=== PATIENT | female | born 1935 | race Caucasian/White ===

== ENCOUNTER 2017-01-04 14:30 | Emergency (ER) | payer MEDICARE, MEDICAID ==
[~2017-01-04] VITALS: Ht 162.6 cm; Wt 86.2 kg
[~2017-01-04 14:30] MED LIST: ALEN70TA2 PO; AML5T PO; BUSP5TAB51 PO; CAR3125T PO; CITA10TA59 PO; DULO30CA2 PO; FAMO-12 PO; FURO40TA PO; FURO40TA4 PO; GABA-494 PO; LEVO125T66 PO; METF-370 PO; NORT25CA GT; POTA-167 PO; PRE5T PO; PREDPOW63 PO; RIV20T PO; ZOLP10TA PO
[2017-01-04] MEDS ORDERED: ONDANSETRON HCL 4 MG/2 ML VIAL IV ONE (16:00)
[2017-01-04] MEDS ORDERED: MORPHINE SULFATE 4 MG/ML SYRG IV ONE (16:00)
[2017-01-04 19:06] VITALS: BP 111/60
[2017-01-08] MEDS ORDERED: POTA-167 PO (00:09)
[2017-01-08] MEDS ORDERED: METF-489 PO (00:09)
[2017-01-08] MEDS ORDERED: ATOR40TA52 PO (00:09)
[2017-01-08] MEDS ORDERED: GABA-494 PO (00:09)
[2017-01-08] MEDS ORDERED: PRED1PAK7 PO (00:09)
[2017-01-08] MEDS ORDERED: DOCU250C3 PO (00:09)
[2017-01-08] MEDS ORDERED: GABA-497 PO (00:09)
[2017-01-08] MEDS ORDERED: CLOP75TA41 PO (00:09)
[2017-01-08] MEDS ORDERED: FAMO-12 PO (00:09)
[2017-01-08] MEDS ORDERED: LEVO75TA6 PO (00:09)
[2017-01-08] MEDS ORDERED: AMLO5TAB2 PO (00:09)
[2017-01-08] MEDS ORDERED: NORT25CA PO (00:09)
[2017-01-08] MEDS ORDERED: CARV3.1240 PO (00:09)
[2017-01-08] MEDS ORDERED: DULO1CAP2 PO (00:09)
[2017-01-08] MEDS ORDERED: FURO40TA4 PO (00:09)
[2017-01-08] MEDS ORDERED: HYDR-531 PO (00:09)
== END 2017-01-04 19:58 | disposition short-term general hospital (02) ==
LOC: EDBD 14:30 → EDUNIT# 14:30 → ER 14:34
DX: S42.401A Unspecified fracture of lower end of right humerus, initial encounter for closed fracture (principal); I25.10 Atherosclerotic heart disease of native coronary artery without angina pectoris; E11.9 Type 2 diabetes mellitus without complications; E78.5 Hyperlipidemia, unspecified; I10 Essential (primary) hypertension; I25.2 Old myocardial infarction; E07.9 Disorder of thyroid, unspecified; Z98.61 Coronary angioplasty status; Z79.899 Other long term (current) drug therapy; W18.39XA Other fall on same level, initial encounter; Y93.89 Activity, other specified; Y92.89 Other specified places as the place of occurrence of the external cause; Y99.8 Other external cause status
CPT/HCPCS: 29105; 73070; 73090; 82962; 96374; 96375; 99285; J2270; J2405; 29125

== ENCOUNTER 2018-04-08 11:56 | Emergency (ER) | payer MEDICARE, MEDICAID ==
[~2018-04-08] VITALS: Ht 170.2 cm; Wt 68.0 kg
[~2018-04-08 11:56] MED LIST changes: -AML5T PO; +AMLO5TAB13 PO; +ATOR40TA52 PO; -CAR3125T PO; +CARV3.1240 PO; +CLOP75TA41 PO; +DOCU250C3 PO; +DULO1CAP2 PO; -DULO30CA2 PO; -FURO40TA PO; -GABA-494 PO; +GABA100C9 PO; +GABA300C10 PO; +HYDR-531 PO; -LEVO125T66 PO; +LEVO75TA6 PO; -METF-370 PO; +METF-489 PO; -NORT25CA GT; +NORT25CA PO; -PRE5T PO; +PRED1PAK7 PO; -PREDPOW63 PO
[2018-04-08 13:37] LABS: Basophils # (auto) 0.1 uL; Basophils % (auto) 0.6 % (0.0-2.0); Eosinophils # (auto) 0.2 uL; Hematocrit 40.8 % (36.0-46.0); Lymphocytes % (auto) 18.9 % (10.0-50.0); Nucleated Red Blood Cells % 0.1 %
[2018-04-08 13:39] LABS: Eosinophils % (auto) 2.2 % (0.0-7.0); Hemoglobin 13.4 g/dL (12.2-16.2); Lymphocytes # (auto) 1.8 uL; Mean Corpuscular Hemoglobin 26.5 pg (28.0-32.0); Mean Corpuscular Hgb Conc. 32.7 g/dL (32.0-36.0); Monocytes % (auto) 10.3 % (0.0-12.0); Neutrophils # (auto) 6.6 uL; Platelet Count (auto) 259 10^3/uL (140-450); Red Blood Cells 5.04 10^6/uL (4.0-5.20); White Blood Cell 9.8 10^3/uL (4.4-10.8)
[2018-04-08 13:41] LABS: Red Cell Distribution Width 21.1 % (11.8-14.3)
[2018-04-08 13:53] LABS: Albumin 3.9 g/dL (3.4-5.0); Anion Gap 9 (5-15); Calcium 8.7 mg/dL (8.5-10.1); Carbon Dioxide 24 mmol/L (21-32); Chloride 108 mmol/L (98-107); Glucose 75 mg/dL (74-106); Potassium 3.5 mmol/L (3.5-5.1); Sodium 141 mmol/L (136-145)
[2018-04-08 14:05] LABS: BUN/Creatinine Ratio 14.5; Blood Urea Nitrogen 12 mg/dL (7-18); GFR African American 85 mL/min
[2018-04-08 14:06] LABS: Alanine Aminotransferase 13 U/L (13-56); Alkaline Phosphatase 117 U/L (45-117); Aspartate Aminotransferase 14 U/L (15-37); Bilirubin, Total 0.9 mg/dL (0.2-1.0); GFR Non-African American 70 mL/min; Total Protein 7.4 g/dL (6.4-8.2)
[2018-04-08 15:17] VITALS: BP 138/71
== END 2018-04-08 15:40 | disposition home or self-care (01) ==
LOC: ER 11:56 → EDBD 11:56 → ER 15:40
DX: R53.1 Weakness (principal); I25.10 Atherosclerotic heart disease of native coronary artery without angina pectoris; E07.9 Disorder of thyroid, unspecified; I25.2 Old myocardial infarction; E11.9 Type 2 diabetes mellitus without complications; E78.5 Hyperlipidemia, unspecified; I11.0 Hypertensive heart disease with heart failure; I50.9 Heart failure, unspecified; Z98.61 Coronary angioplasty status; Z79.899 Other long term (current) drug therapy; Z86.73 Personal history of transient ischemic attack (TIA), and cerebral infarction without residual deficits
CPT/HCPCS: 36415; 71045; 80053; 84484; 85025; 93005

== ENCOUNTER 2018-05-25 15:53 | Emergency (ER) | payer MEDICARE, MEDICAID ==
[~2018-05-25] VITALS: Ht 162.6 cm; Wt 83.9 kg
[2018-05-25 18:24] VITALS: BP 156/73
[2018-05-25 18:38] LABS: Basophils # (auto) 0.1 uL; Basophils % (auto) 0.8 % (0.0-2.0); Eosinophils # (auto) 0.3 uL; Eosinophils % (auto) 3.3 % (0.0-7.0); Hematocrit 36.2 % (36.0-46.0); Hemoglobin 11.9 g/dL (12.2-16.2); Lymphocytes # (auto) 1.9 uL; Mean Corpuscular Hemoglobin 28.5 pg (28.0-32.0); Mean Corpuscular Hgb Conc. 32.8 g/dL (32.0-36.0); Mean Corpuscular Volume 86.8 fL (80.0-100.0); Monocytes # (auto) 1.1 uL; Monocytes % (auto) 14.2 % (0.0-12.0); Neutrophils # (auto) 4.6 uL; Neutrophils % (auto) 57.7 % (37.0-80.0); Platelet Count (auto) 280 10^3/uL (140-450); Red Blood Cells 4.17 10^6/uL (4.0-5.20); Red Cell Distribution Width 19.5 % (11.8-14.3); White Blood Cell 7.9 10^3/uL (4.4-10.8)
[2018-05-25 18:47] LABS: INR 1.26 (0.9-1.15); Partial Thromboplastin Time 39.6 sec (23.78-33.04); Prothrombin Time 13.3 sec (9.27-12.13)
[2018-05-25 18:50] LABS: Albumin 3.7 g/dL (3.4-5.0); Blood Urea Nitrogen 21 mg/dL (7-18); Calcium 9.2 mg/dL (8.5-10.1); Carbon Dioxide 23 mmol/L (21-32); Glucose 109 mg/dL (74-106); Magnesium 2.1 mg/dL (1.6-2.6)
[2018-05-25 18:58] LABS: Alanine Aminotransferase 10 U/L (13-56); Alkaline Phosphatase 119 U/L (45-117); Aspartate Aminotransferase 13 U/L (15-37); BUN/Creatinine Ratio 16.4; Bilirubin, Total 0.7 mg/dL (0.2-1.0); GFR African American 51 mL/min; GFR Non-African American 42 mL/min; Total Protein 7.1 g/dL (6.4-8.2)
[2018-05-25 19:19] LABS: Anion Gap 10 (5-15); Chloride 109 mmol/L (98-107); Potassium 4.3 mmol/L (3.5-5.1); Sodium 142 mmol/L (136-145)
== END 2018-05-25 21:04 | disposition home or self-care (01) ==
LOC: ER 16:00
DX: S70.02XA Contusion of left hip, initial encounter (principal); N28.9 Disorder of kidney and ureter, unspecified; D68.9 Coagulation defect, unspecified; I48.91 Unspecified atrial fibrillation; I25.810 Atherosclerosis of coronary artery bypass graft(s) without angina pectoris; I11.0 Hypertensive heart disease with heart failure; I50.9 Heart failure, unspecified; E11.9 Type 2 diabetes mellitus without complications; E78.5 Hyperlipidemia, unspecified; I25.2 Old myocardial infarction; E07.9 Disorder of thyroid, unspecified; Z86.73 Personal history of transient ischemic attack (TIA), and cerebral infarction without residual deficits; Z79.899 Other long term (current) drug therapy; W01.0XXA Fall on same level from slipping, tripping and stumbling without subsequent striking against object, initial encounter; Y93.89 Activity, other specified; Y92.098 Other place in other non-institutional residence as the place of occurrence of the external cause; Y99.8 Other external cause status
CPT/HCPCS: 36415; 51702; 70450; 71045; 73502; 80053; 83735; 83880; 84484; 85025; 85610; 85730; 93005

== ENCOUNTER 2018-07-09 06:46 | Emergency (ER) | payer MEDICARE, MEDICAID ==
[~2018-07-09] VITALS: Ht 167.6 cm; Wt 68.0 kg
[2018-07-09 07:52] VITALS: BP 166/73
== END 2018-07-09 09:22 | disposition home or self-care (01) ==
LOC: EDUNIT# 06:46 → ER 06:46
DX: S62.615A Displaced fracture of proximal phalanx of left ring finger, initial encounter for closed fracture (principal); I48.91 Unspecified atrial fibrillation; I25.10 Atherosclerotic heart disease of native coronary artery without angina pectoris; I11.0 Hypertensive heart disease with heart failure; I50.9 Heart failure, unspecified; F03.90 Unspecified dementia, unspecified severity, without behavioral disturbance, psychotic disturbance, mood disturbance, and anxiety; E78.5 Hyperlipidemia, unspecified; I25.2 Old myocardial infarction; Z86.73 Personal history of transient ischemic attack (TIA), and cerebral infarction without residual deficits; W19.XXXA Unspecified fall, initial encounter; Y93.89 Activity, other specified; Y92.89 Other specified places as the place of occurrence of the external cause; Y99.8 Other external cause status
CPT/HCPCS: 29130; 70450; 71045; 72192; 73130

== ENCOUNTER 2019-03-12 12:39 | Emergency (ER) | payer MEDICARE, MEDICAID ==
[~2019-03-12] VITALS: Ht 172.7 cm; Wt 79.4 kg
[~2019-03-12 12:39] MED LIST changes: -ALEN70TA2 PO; -AMLO5TAB13 PO; -BUSP5TAB51 PO; -CARV3.1240 PO; +CIPR-217 PO; -CITA10TA59 PO; -CLOP75TA41 PO; -DOCU250C3 PO; -DULO1CAP2 PO; +DULO1CAP5 PO; -FAMO-12 PO; +FURO20TA3 PO; -FURO40TA4 PO; +LINA1CAP2 PO; +MED20T PO; -NORT25CA PO; +OXYB15TA12 PO; -POTA-167 PO; -PRED1PAK7 PO; -ZOLP10TA PO
[2019-03-12] MEDS ORDERED: SODIUM CHLORIDE 0.9% 1,000 ML IVB ONE (13:36)
[2019-03-12 13:55] LABS: Basophils # (auto) 0 uL; Basophils % (auto) 0.5 % (0.0-2.0); Eosinophils # (auto) 0.3 uL; Eosinophils % (auto) 3.6 % (0.0-7.0); Hematocrit 37.8 % (36.0-46.0); Hemoglobin 12.7 g/dL (12.2-16.2); Lymphocytes # (auto) 1.6 uL; Lymphocytes % (auto) 23.3 % (10.0-50.0); Mean Corpuscular Hemoglobin 29.7 pg (28.0-32.0); Mean Corpuscular Hgb Conc. 33.6 g/dL (32.0-36.0); Mean Corpuscular Volume 88.3 fL (80.0-100.0); Monocytes # (auto) 0.9 uL; Monocytes % (auto) 12.6 % (0.0-12.0); Neutrophils # (auto) 4.2 uL; Nucleated Red Blood Cells % 0.1 %; Platelet Count (auto) 264 10^3/uL (140-450); Red Blood Cells 4.28 10^6/uL (4.0-5.20); Red Cell Distribution Width 14.8 % (11.8-14.3)
[2019-03-12 14:14] LABS: Albumin 3.1 g/dL (3.4-5.0); Calcium 8.8 mg/dL (8.5-10.1); Potassium 4.1 mmol/L (3.5-5.1)
[2019-03-12 14:19] LABS: BUN/Creatinine Ratio 20.9; Bilirubin, Total 0.5 mg/dL (0.2-1.0); Total Protein 6.7 g/dL (6.4-8.2)
[2019-03-12 14:23] LABS: INR 1.27 (0.9-1.15); Partial Thromboplastin Time 37.6 sec (23.64-32.05)
[2019-03-12 15:35] LABS: Urine Bacteria NONE SEEN /hpf (None Seen); Urine Blood Negative /uL (Negative); Urine Specific Gravity 1.009 (1.001-1.035); Urine WBC 15 /hpf (0 - 5)
[2019-03-12 16:00] VITALS: BP 144/75
[2019-03-12] MEDS ORDERED: cefTRIAXone 1GM/50ML D5W 50 ML IV ONE (16:00)
== END 2019-03-12 18:00 | disposition home or self-care (01) ==
LOC: EDBD 12:39 → ER 12:46
DX: S51.812A Laceration without foreign body of left forearm, initial encounter (principal); N39.0 Urinary tract infection, site not specified; F03.90 Unspecified dementia, unspecified severity, without behavioral disturbance, psychotic disturbance, mood disturbance, and anxiety; J45.909 Unspecified asthma, uncomplicated; I25.10 Atherosclerotic heart disease of native coronary artery without angina pectoris; I11.0 Hypertensive heart disease with heart failure; I50.9 Heart failure, unspecified; E78.5 Hyperlipidemia, unspecified; E07.9 Disorder of thyroid, unspecified; Z79.899 Other long term (current) drug therapy; I25.2 Old myocardial infarction; Z98.61 Coronary angioplasty status; W01.190A Fall on same level from slipping, tripping and stumbling with subsequent striking against furniture, initial encounter; Y93.89 Activity, other specified; Y99.8 Other external cause status; Y92.89 Other specified places as the place of occurrence of the external cause
CPT/HCPCS: 36415; 70450; 71045; 80053; 81001; 83735; 85025; 85610; 85730; 93005; 94761; 96361; 96365; 99284; J0696; J7030

== ENCOUNTER 2019-11-07 19:45 | Inpatient (IN) | payer MEDICARE, MEDICAID ==
[~2019-11-07] VITALS: Ht 167.6 cm; Wt 59.6 kg
[~2019-11-07 19:45] MED LIST changes: -CIPR-217 PO; +CIPR500T4 PO
[2019-11-07 21:37] LABS: Basophils # (auto) 0 10 ^3/uL (0-0.2); Basophils % (auto) 0.2 % (0.0-2.0); Eosinophils # (auto) 0 10 ^3/uL (0-0.8); Eosinophils % (auto) 0.2 % (0.0-7.0); Hematocrit 39.3 % (36.0-46.0); Hemoglobin 12.8 g/dL (12.2-16.2); Lymphocytes % (auto) 5.9 % (10.0-50.0); Mean Corpuscular Hemoglobin 28.4 pg (28.0-32.0); Mean Corpuscular Hgb Conc. 32.5 g/dL (32.0-36.0); Mean Corpuscular Volume 87.3 fL (80.0-100.0); Monocytes # (auto) 1.4 10 ^3/uL (0-1.3); Monocytes % (auto) 8.5 % (0.0-12.0); Neutrophils # (auto) 14.3 10 ^3/uL (1.6-8.6); Neutrophils % (auto) 85.2 % (37.0-80.0); Nucleated Red Blood Cells % 0.1 %; Platelet Count (auto) 423 10^3/uL (140-450); Red Cell Distribution Width 16.3 % (11.8-14.3); White Blood Cell 16.8 10^3/uL (4.4-10.8)
[2019-11-07 21:50] LABS: INR 1.22 (0.9-1.15); Partial Thromboplastin Time 40.4 sec (23.64-32.05)
[2019-11-07 21:52] LABS: Albumin 2.8 g/dL (3.4-5.0); BUN/Creatinine Ratio 35.5; Magnesium 2.3 mg/dL (1.6-2.6); Potassium 4.1 mmol/L (3.5-5.1)
[2019-11-07 21:54] LABS: Total Protein 7.8 g/dL (6.4-8.2)
[2019-11-07] MEDS ORDERED: levoFLOXacin 750MG 150 ML IV ONE (23:45)
[2019-11-07] MEDS ORDERED: SODIUM CHLORIDE 0.9% 1,000 ML IV SCH (23:54)
[2019-11-08] MEDS ORDERED: NITROGLYCERIN 0.4 MG SL TAB SL PRN
[2019-11-08] MEDS ORDERED: MORPHINE SULF INJ 2 MG/ML SYRINGE 1ML IV PRN
[2019-11-08] MEDS ORDERED: ACETAMINOPHEN 500 MG TAB PO PRN
[2019-11-08] MEDS ORDERED: LORazepam 0.5 MG TAB PO ONE (01:00)
[2019-11-08] MEDS ORDERED: risperiDONE 1 MG TAB PO ONE (01:00)
[2019-11-08 01:09] LABS: Albumin 2.4 g/dL (3.4-5.0); Calcium 8.2 mg/dL (8.5-10.1); Potassium 3.5 mmol/L (3.5-5.1)
[2019-11-08 01:10] LABS: BUN/Creatinine Ratio 29.5
[2019-11-08 01:11] VITALS: BP 139/75
[2019-11-08 01:13] LABS: Bilirubin, Total 0.8 mg/dL (0.2-1.0); Total Protein 6.8 g/dL (6.4-8.2)
[2019-11-08 02:45] VITALS: BP 152/88
--- NOTE | 2019-11-08 02:45 | NUR ---
Telemetry admit from ER ANDREA HARVEYRED admitted to Telemetry unit after SBAR received. Patient oriented to JOJO CARMONA RN primary RN, unit, room, bed, and unit policies regarding patient care and visiting hours. Patient now on continuous telemetry monitoring, tele box #9 and telemetry reading on arrival to unit is NSR. Upon arrival to the unit, the patient is A&O to self, patient reorientated, no s/s of SOB or distress noted at this time. Bed locked and left in the lowest position, with side rails up x2. Patient placed on bedside oxygen, weighed by bedscale and encouraged to call if they need something. All questions and concerns addressed, patient verbalized understanding.
[2019-11-08] MEDS ORDERED: MELO1TAB56 PO (04:02)
--- NOTE | 2019-11-08 05:00 | NUR ---
PICTURE OF LEFT LEG WOUND TAKEN.
[2019-11-08] MEDS ORDERED: ALBUTEROL SULF HFA 90MCG INH 200DOSE IN SCH ×3 (06:00)
[2019-11-08] MEDS ORDERED: PNEUMOCOCCAL VACC POLYS 25 MCG/0.5 ML VIAL IM ONE (06:30)
--- NOTE | 2019-11-08 06:58 | NUR ---
LABORATORY AT BEDSIDE TO HELP ASSIST DRAW LABS.
[2019-11-08 07:31] LABS: Basophils # (auto) 0 10 ^3/uL (0-0.2); Basophils % (auto) 0.1 % (0.0-2.0); Eosinophils # (auto) 0 10 ^3/uL (0-0.8); Eosinophils % (auto) 0.2 % (0.0-7.0); Hematocrit 38.2 % (36.0-46.0); Hemoglobin 12.3 g/dL (12.2-16.2); Lymphocytes # (auto) 0.7 10 ^3/uL (0.4-5.4); Lymphocytes % (auto) 5.4 % (10.0-50.0); Mean Corpuscular Hemoglobin 27.8 pg (28.0-32.0); Mean Corpuscular Hgb Conc. 32.1 g/dL (32.0-36.0); Mean Corpuscular Volume 86.6 fL (80.0-100.0); Monocytes # (auto) 1.4 10 ^3/uL (0-1.3); Monocytes % (auto) 10.4 % (0.0-12.0); Neutrophils # (auto) 11.4 10 ^3/uL (1.6-8.6); Neutrophils % (auto) 83.9 % (37.0-80.0); Platelet Count (auto) 400 10^3/uL (140-450); Red Cell Distribution Width 16.1 % (11.8-14.3); White Blood Cell 13.6 10^3/uL (4.4-10.8)
--- NOTE | 2019-11-08 07:36 | NUR ---
REPORT GIVEN TO DAY SHIFT RN. PATIENT SITTING IN BED COMFORTABLY. NO DISTRESS OR SOB NOTED.
--- NOTE | 2019-11-08 08:00 | NUR ---
OPENING SHIFT NOTE: PATIENT ALERT AND ORIENTED X2. PATIENT DENIES ANY SOB. DENIES ANY PAIN. PATIENT INCONTINENT OF STOOL AND URINE. ON 1L NC. PATIENT SAT UP IN BED AND ASSISTED WITH FEEDING. ASPIRATION PRECAUTIONS IN PLACE. BED IN LOWEST LOCKED POSITION WITH CALL LIGHT WITH REACH. WILL CONTINUE CARE.
[2019-11-08 09:00] VITALS: BP 157/82
[2019-11-08] MEDS ORDERED: ASCORBIC ACID 1,000 MG TAB PO SCH (10:00)
[2019-11-08] MEDS ORDERED: DOXYCYCLINE 100MG/250ML 250 ML IV SCH (10:00)
[2019-11-08] MEDS ORDERED: CHOLECALCIFEROL (VITD3) 1,000IU=25mCg TAB PO SCH (10:00)
[2019-11-08] MEDS: ENOXAPARIN SOD 40 MG/0.4 ML SYRINGE SC SCH (10:18)
[2019-11-08] MEDS: ZINC SULFATE 220mg CAP or TAB PO SCH (10:24)
--- NOTE | 2019-11-08 10:32 | NUR ---
ATTEMPTED TO CALL SON. NO ANSWER. VOICEMAIL NOT SET-UP.
--- NOTE | 2019-11-08 11:05 | NUR ---
BED BATH: PATIENT GIVEN FULL BED BATH. TURNED TO RIGHT SIDE FOR COMFORT. TOLERATED WELL. RESTING WITH NO S/S OF DISTRESS.
--- NOTE | 2019-11-08 12:28 | NUR ---
CARE ENDORSED TO DENA JAUREGUI.
[2019-11-08] MEDS ORDERED: cefTRIAXone 1GM/50ML D5W 50 ML IV ONE (12:45)
[2019-11-08] MEDS ORDERED: DEXTROSE (50%) 50ML SYRG IV PRN (12:45)
--- NOTE | 2019-11-08 12:45 | NUR ---
PATIENT BROUGHT TO ROOM 247A, SITTER AT BEDSIDE. ALL BELONGINGS WITH PATIENT, PATIENT ALERT X2.
[2019-11-08 13:00] VITALS: BP 139/75
--- NOTE | 2019-11-08 13:02 | NUR ---
SPOKE WITH PATIENT'S , JOSÉ MIGUEL #[phone]. UPDATED HIM ON POC.
--- NOTE | 2019-11-08 13:13 | NUR ---
WOUND CARE NOTE: Wound care in to see patient per wound care request regarding "Left leg wound" that are noted present on admission. Bedside nurse took photograph of patient's wound upon admission for reference. Patient is 84 years old female admitted to R/[facility], hx CHF, Asthma, Dementia. Patient is resting in bed in Rm. 247A. Patient is awake, but not oriented. She needs assistance in turning and repositioning. Her Brad score is 12. Patient appears to be in no pain using Bravo Quinn Faces Pain Scale. Skin assessment done with the assistance of patient's nurse, DENA Rocha. Patient noted with 6x2cm open full thickness skin tear to Lt anterior kaur. Wound is red with purple ecchymotic josé miguel wound, minimal serosanguineous drainage, no odor noted. Cleansed Lt kaur wound with NS, patted dry with gauze,applied Thera honey gel and covered with Opti foam gentle dressing. Patient's BLE noted with brown hyperpigmented skin. her Rt elbow and heels has blanchable redness,applied Jerson foam boots to patient's BLE. Patient's sacrum and back are examined, no pressure injury noted. Applied Z Guard cream to patient's sacral, buttocks as preventative.Patient tolerated well, repositioned for comfort facing her Lt side, redistributed pressure points with pillows. Nurse social worker assistant at bedside. RECOMMENDATION: Nursing to continue with EOD/PRN dressing to Lt lower leg per MD order, and BID/PRN cleaning and application of Barrier cream to sacral/buttocks as preventative, Dietary consult, frequent turning and repositioning schedule as condition permits, redistribute pressure points with pillows, Foam boots to BLE, continue monitoring by wound care while patient is hospitalized. Addendum: 11/08/19 at 1742 by Mariann Ortez RN Amended: Links added.
--- NOTE | 2019-11-08 13:25 | NUR ---
HOME MEDICATIONS TAKEN DOWN TO PHARMACY.
[2019-11-08] MEDS ORDERED: AZITHROMYCIN 500MG/ 250ML 250 ML IV ONE (14:00)
--- NOTE | 2019-11-08 15:02 | NUR ---
Nutrition Assessment Notes Please refer to link for full assessment notes. Est Energy needs: 4057-5733 kcals (20-23 kcal/kgBW) Est Protein needs: 58-63 gms/day (1.0-1.1 gm/kgBW) Will continue to monitor and reassess prn. Addendum: 11/08/19 at [address] Amended: Links added.
--- NOTE | 2019-11-08 15:03 | NUR ---
Vázquez catheter insertion Patient assessed and determined to be in need of Vázquez catheter. Order obtained from MD. Patient educated on catheter and reason for insertion. All questions answered. Vázquez catheter 16 gauge Turkish inserted with clean sterile technique. Patient tolerated well. URINE SAMPLE COLLECTED AND SENT TO LAB VIA BULLET.
[2019-11-08 15:30] LABS: Urine Bacteria FEW /hpf (None Seen); Urine Blood Negative /uL (Negative); Urine Mucus FEW (None Seen); Urine Specific Gravity 1.025 (1.001-1.035); Urine WBC 128 /hpf (0 - 5)
[2019-11-08] MEDS: ACETAMINOPHEN 500 MG TAB PO PRN (16:15)
[2019-11-08 17:00] VITALS: BP 158/70
[2019-11-08] MEDS: InsuLIN REG 1unit/0.01ml Soln (100units/ml) SC SCH ×2 (17:00→21:43)
[2019-11-08] MEDS: ACCU-CHEK COMFORT CURVE STRIP VI SCH ×2 (17:11→21:43)
--- NOTE | 2019-11-08 19:15 | NUR ---
Opening Shift Note Assumed care of patient, awake and alert. No S/S of distress/SOB or pain. Bed in lowest locked position, side rails up x2, call light within reach, sitter at bedside. Jerson boots on feet and dressing to left leg noted to be clean, dry, and intact. Instructed on POC and to call for assist PRN, will continue to monitor for changes Q1hr and PRN.
[2019-11-08 22:00] VITALS: BP 154/70
[2019-11-09 04:34] VITALS: BP 159/76
--- NOTE | 2019-11-09 05:10 | NUR ---
Patient moved from 247 A to 233 without incident. All belongings at bedside. Sitter discontinued at this time by charge nurse Inez FERNANDES. Will continue care.
[2019-11-09 05:43] LABS: Basophils # (auto) 0.1 10 ^3/uL (0-0.2); Basophils % (auto) 0.7 % (0.0-2.0); Eosinophils # (auto) 0.1 10 ^3/uL (0-0.8); Eosinophils % (auto) 0.7 % (0.0-7.0); Hematocrit 36.2 % (36.0-46.0); Hemoglobin 11.9 g/dL (12.2-16.2); Lymphocytes # (auto) 0.9 10 ^3/uL (0.4-5.4); Lymphocytes % (auto) 8.2 % (10.0-50.0); Mean Corpuscular Hgb Conc. 32.9 g/dL (32.0-36.0); Mean Corpuscular Volume 85.2 fL (80.0-100.0); Monocytes # (auto) 1.5 10 ^3/uL (0-1.3); Neutrophils # (auto) 8.6 10 ^3/uL (1.6-8.6); Neutrophils % (auto) 77.4 % (37.0-80.0); Platelet Count (auto) 399 10^3/uL (140-450); Red Blood Cells 4.25 10^6/uL (4.0-5.20); Red Cell Distribution Width 15.9 % (11.8-14.3); White Blood Cell 11.2 10^3/uL (4.4-10.8)
[2019-11-09 06:00] LABS: Potassium 3.4 mmol/L (3.5-5.1)
[2019-11-09 06:05] LABS: BUN/Creatinine Ratio 38.2; Calcium 8.9 mg/dL (8.5-10.1)
[2019-11-09] MEDS: InsuLIN REG 1unit/0.01ml Soln (100units/ml) SC SCH ×4 (06:44→22:00)
[2019-11-09] MEDS: ACCU-CHEK COMFORT CURVE STRIP VI SCH ×4 (06:44→21:54)
--- NOTE | 2019-11-09 06:57 | NUR ---
Closing Note Patient lying in bed, awake and alert. No s/s of distress. Bed in lowest locked position, side rails up x2, call light within reach, bed alarm on. Will endorse care to dayshift RN.
[2019-11-09] MEDS ORDERED: LEVOTHYROXINE SODIUM 50 MCG TAB PO SCH (07:00)
--- NOTE | 2019-11-09 07:30 | NUR ---
RECEIVED REPORT FROM NIGHT NURSE. PATIENT RESTING IN BED, BED ALARM ON. NO DISTRESS NOTED. WILL CONTINUE TO MONITOR.
[2019-11-09 09:00] VITALS: BP 148/86
[2019-11-09] MEDS: AZITHROMYCIN 500MG/ 250ML 250 ML IV SCH (10:00)
[2019-11-09] MEDS: ZINC SULFATE 220mg CAP or TAB PO SCH (10:15)
[2019-11-09] MEDS: cefTRIAXone 1GM/50ML D5W 50 ML IV SCH (10:15)
[2019-11-09] MEDS: ACETAMINOPHEN 500 MG TAB PO PRN (10:15)
[2019-11-09] MEDS: ENOXAPARIN SOD 40 MG/0.4 ML SYRINGE SC SCH (10:15)
[2019-11-09 12:53] VITALS: BP 161/83
[2019-11-09 17:08] VITALS: BP 140/49
--- NOTE | 2019-11-09 19:15 | NUR ---
Opening Shift Note Assumed care of patient, eyes closed, respirations even and unlabored, appears asleep. No S/S of distress/SOB or pain. Bed in lowest locked position, side rails up x2, call light within reach, bed alarm on. Jerson boots on bilateral feet and dressing to left leg noted to be clean, dry, and intact. Instructed on POC and to call for assist PRN, will continue to monitor for changes Q1hr and PRN.
[2019-11-09 22:00] VITALS: BP 154/93
[2019-11-10 05:00] VITALS: BP 147/74
[2019-11-10] MEDS: ACCU-CHEK COMFORT CURVE STRIP VI SCH ×4 (06:28→22:00)
[2019-11-10] MEDS: InsuLIN REG 1unit/0.01ml Soln (100units/ml) SC SCH ×4 (06:35→22:00)
--- NOTE | 2019-11-10 06:39 | NUR ---
Closing Note Patient lying in bed, eyes closed, respirations even and unlabored, appears asleep. No s/s of distress. Bed in lowest locked position, side rails up x2, call light within reach, bed alarm on. Will endorse care to dayshift RN.
--- NOTE | 2019-11-10 07:30 | NUR ---
Opening Shift Note Assumed care of patient, awake and alert. No S/S of distress/SOB or pain. Instructed on POC and to call for assist PRN, will continue to monitor for changes Q1hr and PRN. Fall precautions in place per safety protocol.
[2019-11-10 08:00] VITALS: BP 154/88
[2019-11-10 08:38] VITALS: BP 154/88
[2019-11-10] MEDS: cefTRIAXone 1GM/50ML D5W 50 ML IV SCH (09:48)
[2019-11-10] MEDS: AZITHROMYCIN 500MG/ 250ML 250 ML IV SCH (09:48)
[2019-11-10] MEDS: ENOXAPARIN SOD 40 MG/0.4 ML SYRINGE SC SCH (09:49)
[2019-11-10] MEDS: ZINC SULFATE 220mg CAP or TAB PO SCH (09:49)
--- NOTE | 2019-11-10 11:04 | NUR ---
Hospitalist at bedside MD Verdin at bedside, aware of patient status including refusal to eat. Per MD, he will make changes to orders. Will cont to monitor patient.
[2019-11-10] MEDS ORDERED: DOCUSATE SOD 100 MG CAP PO ONE (11:15)
[2019-11-10] MEDS ORDERED: LISINOPRIL 5 MG TAB PO ONE (11:15)
[2019-11-10] MEDS: Ensure HIGH Protein Chocolate 8oz Bottle PO SCH ×2 (12:00→18:00)
[2019-11-10] MEDS: ACETAMINOPHEN 500 MG TAB PO PRN (12:22)
--- NOTE | 2019-11-10 12:30 | NUR ---
Pain Patient complaining of a headache. Medicated with Acetaminophen, will cont to monitor patient.
[2019-11-10 12:58] VITALS: BP 138/74
[2019-11-10 16:15] VITALS: BP 147/99
--- NOTE | 2019-11-10 19:32 | NUR ---
Opening Shift Note Assumed care of patient, awake and alert, patient oriented to self and location. No S/S of distress/SOB or pain. Patient on 1L NC and tolerating well. Instructed on POC and to call for assist PRN, will continue to monitor for changes Q1hr and PRN. Safety precautions maintained bed is in lowest position and locked, bed rails 2x. Call light and bedside table are within reach.
[2019-11-10 22:00] VITALS: BP 150/86
[2019-11-11 05:00] VITALS: BP 132/88
[2019-11-11] MEDS: InsuLIN REG 1unit/0.01ml Soln (100units/ml) SC SCH ×3 (06:49→17:00)
[2019-11-11] MEDS: ACCU-CHEK COMFORT CURVE STRIP VI SCH ×3 (06:49→17:00)
[2019-11-11 07:04] LABS: Eosinophils # (auto) 0.3 10 ^3/uL (0-0.8); Eosinophils % (auto) 3.3 % (0.0-7.0); Hemoglobin 12.6 g/dL (12.2-16.2); Mean Corpuscular Hemoglobin 28.5 pg (28.0-32.0)
[2019-11-11 07:08] LABS: Basophils # (auto) 0.1 10 ^3/uL (0-0.2); Basophils % (auto) 0.5 % (0.0-2.0); Hematocrit 37.7 % (36.0-46.0); Lymphocytes # (auto) 1.6 10 ^3/uL (0.4-5.4); Lymphocytes % (auto) 15.8 % (10.0-50.0); Mean Corpuscular Hgb Conc. 33.5 g/dL (32.0-36.0); Mean Corpuscular Volume 85.1 fL (80.0-100.0); Monocytes # (auto) 1.2 10 ^3/uL (0-1.3); Monocytes % (auto) 11.4 % (0.0-12.0); Neutrophils # (auto) 7.1 10 ^3/uL (1.6-8.6); Nucleated Red Blood Cells % 0.1 %; Platelet Count (auto) 491 10^3/uL (140-450); Red Blood Cells 4.43 10^6/uL (4.0-5.20); White Blood Cell 10.3 10^3/uL (4.4-10.8)
[2019-11-11 07:11] LABS: Albumin 2.3 g/dL (3.4-5.0); Calcium 9.3 mg/dL (8.5-10.1); Potassium 3.6 mmol/L (3.5-5.1)
[2019-11-11 07:14] LABS: BUN/Creatinine Ratio 37.1; Bilirubin, Total 0.4 mg/dL (0.2-1.0); Total Protein 6.4 g/dL (6.4-8.2)
--- NOTE | 2019-11-11 07:20 | NUR ---
Closing Shift Note Endorsed care Estephania RN. At this time patient has no s/s of distress or SOB and is responsive to name and touch.
[2019-11-11 08:00] VITALS: BP 145/90
[2019-11-11] MEDS: Ensure HIGH Protein Chocolate 8oz Bottle PO SCH ×3 (08:00→18:00)
[2019-11-11 09:00] VITALS: BP 145/90
[2019-11-11] MEDS ORDERED: LISINOPRIL 5 MG TAB PO SCH (10:00)
[2019-11-11] MEDS ORDERED: AZITHROMYCIN 250 MG TAB PO SCH (10:00)
[2019-11-11] MEDS: cefTRIAXone 1GM/50ML D5W 50 ML IV SCH (10:09)
--- NOTE | 2019-11-11 11:30 | NUR ---
Hospitalist at bedside MD Verdin at bedside, aware of patient status. Orders to D/C Vázquez and patient after urinating received. Will carry out new orders and cont to monitor patient.
--- NOTE | 2019-11-11 12:00 | NUR ---
Zapata catheter dc'd Order to discontinue zapata catheter. Zapata dc'd with clean technique following deflation of balloon. Patient tolerated well with no complaints of pain. Continue care.
[2019-11-11 12:21] VITALS: BP 145/90
[2019-11-11 13:00] VITALS: BP 144/69
--- NOTE | 2019-11-11 16:43 | NUR ---
Patient Urinated Patient has urinated twice after zapata taken out and has been on RA for 3 hours, with O2 sats reading <92. Will call family for transportation and will cont to care until pick and shovel worker.
[2019-11-11] MEDS ORDERED: PNEUMOCOCCAL VACC POLYS 25 MCG/0.5 ML VIAL IM ONE (16:45)
[2019-11-11 16:57] VITALS: BP 117/81
--- NOTE | 2019-11-11 18:51 | NUR ---
Discharge instructions given as ordered. Encourage to follow up with PMD as instructed. All questions and concerns addressed. Patient verbalized understanding. Medication reconciliation form completed and copy given to patient. Home medications held in Pharmacy returned to patient, and needed vaccines given. IV removed with catheter intact, pressure dressing applied, zapata catheter removed. Telemetry unit returned to ICU. Patient taken to vehicle via wheelchair with all personal belongings, accompanied by staff, spoke to son and Gordon about follow-up appointments and discharge instructions. No distress noted at time of departure.
== END 2019-11-11 18:45 | disposition home or self-care (01) | DRG 871 ==
LOC: EDBD 19:45 → ER 19:51 → TELE 19:52 → TELE-EAST 11-08 03:53
PROVIDERS: ADMIT Hospitalist; ATTEND Internal Medicine
DX: A41.9 Sepsis, unspecified organism (principal); J18.9 Pneumonia, unspecified organism; J90 Pleural effusion, not elsewhere classified; G93.40 Encephalopathy, unspecified; N39.0 Urinary tract infection, site not specified; E03.9 Hypothyroidism, unspecified; E11.9 Type 2 diabetes mellitus without complications; I25.10 Atherosclerotic heart disease of native coronary artery without angina pectoris; I48.91 Unspecified atrial fibrillation; E87.6 Hypokalemia; E78.5 Hyperlipidemia, unspecified; F03.90 Unspecified dementia, unspecified severity, without behavioral disturbance, psychotic disturbance, mood disturbance, and anxiety; F17.200 Nicotine dependence, unspecified, uncomplicated; I50.9 Heart failure, unspecified; I11.0 Hypertensive heart disease with heart failure; J45.909 Unspecified asthma, uncomplicated; Z82.49 Family history of ischemic heart disease and other diseases of the circulatory system; Z03.818 Encounter for observation for suspected exposure to other biological agents ruled out
CPT/HCPCS: 36415; 71045; 80048; 80053; 81001; 82728; 82962; 83036; 83605; 83615; 83735; 83880; 84443; 84484; 85025; 85610; 85730; 87040; 87070; 87086; 87804; 87880; 93005; 96365; 97110; 97116; 97163; G0378; J0696; J1956; J3490

== ENCOUNTER 2021-12-04 14:49 | Inpatient (IN) | payer MEDICARE, MEDICAID ==
[~2021-12-04] VITALS: Ht 172.7 cm; Wt 53.0 kg
[~2021-12-04 14:49] MED LIST changes: -MED20T PO; +MEGE20TA5 PO; +MELO1TAB56 PO
[2021-12-04] MEDS ORDERED: LORazepam 2MG/ML-1ML VIAL IV ONE (15:00)
[2021-12-04] MEDS ORDERED: SODIUM CHLORIDE 0.9% 1,000 ML IV ONE (15:00)
[2021-12-04 16:06] LABS: Basophils # (auto) 0 10 ^3/uL (0-0.2); Basophils % (auto) 0.7 % (0.0-2.0); Eosinophils # (auto) 0 10 ^3/uL (0-0.8); Eosinophils % (auto) 0.1 % (0.0-7.0); Hematocrit 35.3 % (36.0-46.0); Hemoglobin 11.5 g/dL (12.2-16.2); Lymphocytes # (auto) 0.8 10 ^3/uL (0.4-5.4); Lymphocytes % (auto) 16.7 % (10.0-50.0); Mean Corpuscular Hemoglobin 26.9 pg (28.0-32.0); Mean Corpuscular Hgb Conc. 32.6 g/dL (32.0-36.0); Mean Corpuscular Volume 82.6 fL (80.0-100.0); Monocytes # (auto) 0.6 10 ^3/uL (0-1.3); Monocytes % (auto) 12.3 % (0.0-12.0); Neutrophils # (auto) 3.2 10 ^3/uL (1.6-8.6); Neutrophils % (auto) 70.2 % (37.0-80.0); Nucleated Red Blood Cells % 0.2 %; Red Blood Cells 4.27 10^6/uL (4.0-5.20); White Blood Cell 4.5 10^3/uL (4.4-10.8)
[2021-12-04 16:17] LABS: Albumin 3.2 g/dL (3.4-5.0); BUN/Creatinine Ratio 27.7; Calcium 9.1 mg/dL (8.5-10.1); Potassium 3.9 mmol/L (3.5-5.1)
[2021-12-04 16:20] LABS: Bilirubin, Total 0.4 mg/dL (0.2-1.0); Total Protein 6.1 g/dL (6.4-8.2)
[2021-12-04 16:31] LABS: INR 1.07 (0.9-1.15); Partial Thromboplastin Time 34.9 sec (23.6-33.0)
[2021-12-04] MEDS ORDERED: metroNIDAZOLE 500MG/100ML 100 ML IV ONE (18:15)
[2021-12-04] MEDS ORDERED: levoFLOXacin 500MG 100 ML IV ONE (18:15)
[2021-12-04] MEDS ORDERED: DEXTROSE (50%) 50ML SYRG IV PRN (21:45)
[2021-12-04] MEDS ORDERED: ONDANSETRON HCL 4 MG/2 ML VIAL IV PRN (21:45)
[2021-12-04] MEDS ORDERED: NITROGLYCERIN 0.4 MG SL TAB SL PRN (21:45)
[2021-12-04] MEDS ORDERED: ACETAMINOPHEN 325 MG TAB PO PRN (21:45)
[2021-12-04] MEDS ORDERED: MORPHINE SULFATE INJ 2 MG/ml SYRG IV PRN (21:45)
[2021-12-04] MEDS: InsuLIN REG 1unit/0.01ml Soln (100units/ml) SC SCH (22:00)
[2021-12-04] MEDS: ACCU-CHEK COMFORT CURVE STRIP VI SCH (22:00)
[2021-12-04 22:59] LABS: Urine Bacteria MANY /hpf (None Seen); Urine Blood Negative /uL (Negative); Urine Mucus FEW (None Seen); Urine Specific Gravity 1.027 (1.001-1.035); Urine WBC 8 /hpf (0 - 5)
[2021-12-05] MEDS: metroNIDAZOLE 500MG/100ML 100 ML IV SCH ×4 (00:29→22:18)
[2021-12-05] MEDS ORDERED: LORazepam 2MG/ML-1ML VIAL IV ONE (02:00)
[2021-12-05] MEDS: DOCUSATE SOD 100 MG CAP PO SCH ×3 (03:24→22:18)
[2021-12-05] MEDS: APIXABAN 5 MG TAB PO SCH ×3 (03:25→22:18)
[2021-12-05] MEDS: ATORVASTATIN 20 MG TAB PO SCH ×2 (03:25→22:18)
[2021-12-05] MEDS: METOPROLOL TARTRATE 25 MG TAB PO SCH ×3 (03:26→22:19)
[2021-12-05] MEDS: ACCU-CHEK COMFORT CURVE STRIP VI SCH ×2 (06:27→11:59)
[2021-12-05] MEDS: LEVOTHYROXINE SODIUM 100 MCG TAB PO SCH (06:27)
[2021-12-05] MEDS: LEVOTHYROXINE SODIUM 25 MCG TAB PO SCH (06:27)
[2021-12-05] MEDS: InsuLIN REG 1unit/0.01ml Soln (100units/ml) SC SCH ×2 (06:29→11:30)
[2021-12-05 08:37] LABS: Albumin 2.3 g/dL (3.4-5.0); BUN/Creatinine Ratio 32.1; Bilirubin, Total 0.5 mg/dL (0.2-1.0); Calcium 8.2 mg/dL (8.5-10.1)
[2021-12-05] MEDS: cefTRIAXone 1GM/50ML D5W 50 ML IV SCH (09:11)
[2021-12-05] MEDS ORDERED: FUROSEMIDE 20 MG TAB PO SCH (10:00)
[2021-12-05] MEDS ORDERED: PANTOPRAZOLE 40 MG TAB PO SCH (10:00)
[2021-12-05 10:14] LABS: Basophils # (auto) 0 10 ^3/uL (0-0.2); Eosinophils # (auto) 0 10 ^3/uL (0-0.8); Hematocrit 35.2 % (36.0-46.0); Hemoglobin 11.6 g/dL (12.2-16.2); Lymphocytes # (auto) 0.7 10 ^3/uL (0.4-5.4); Mean Corpuscular Hgb Conc. 32.8 g/dL (32.0-36.0); Monocytes # (auto) 0.6 10 ^3/uL (0-1.3); Neutrophils # (auto) 4.5 10 ^3/uL (1.6-8.6)
[2021-12-05 10:17] LABS: Basophils % (auto) 0.2 % (0.0-2.0); Lymphocytes % (auto) 11.5 % (10.0-50.0); Mean Corpuscular Hemoglobin 26.9 pg (28.0-32.0); Monocytes % (auto) 10.3 % (0.0-12.0); White Blood Cell 5.7 10^3/uL (4.4-10.8)
[2021-12-05 10:22] LABS: Red Cell Distribution Width 20.5 % (11.8-14.3)
[2021-12-05] MEDS ORDERED: LACTULOSE 20Gm/30ML SOLN PO ONE (11:00)
[2021-12-05] MEDS: DULoxetine HCL 30 MG CAP PO SCH (11:24)
[2021-12-05] MEDS: HYDROcodone-ACET 5/325MG TAB PO PRN ×3 (11:24→23:07)
[2021-12-05] MEDS ORDERED: LACTULOSE 20Gm/30ML SOLN PO PRN (15:15)
[2021-12-05] MEDS: SODIUM CHLORIDE 0.9% 1,000 ML IV SCH (15:27)
[2021-12-06 00:10] VITALS: BP 89/44
[2021-12-06] MEDS: SODIUM CHLORIDE 0.9% 1,000 ML IV SCH ×2 (00:50→15:00)
[2021-12-06] MEDS ORDERED: ALBUMIN 5% 250 ML IV ONE (01:00)
[2021-12-06 05:00] VITALS: BP 90/38
[2021-12-06] MEDS: metroNIDAZOLE 500MG/100ML 100 ML IV SCH ×3 (05:31→22:28)
[2021-12-06 05:42] LABS: Basophils # (auto) 0 10 ^3/uL (0-0.2); Basophils % (auto) 0.1 % (0.0-2.0); Eosinophils # (auto) 0 10 ^3/uL (0-0.8); Eosinophils % (auto) 0.1 % (0.0-7.0); Hematocrit 28.6 % (36.0-46.0); Hemoglobin 9.6 g/dL (12.2-16.2); Lymphocytes # (auto) 0.8 10 ^3/uL (0.4-5.4); Lymphocytes % (auto) 14.7 % (10.0-50.0); Mean Corpuscular Hemoglobin 27.7 pg (28.0-32.0); Mean Corpuscular Hgb Conc. 33.5 g/dL (32.0-36.0); Mean Corpuscular Volume 82.7 fL (80.0-100.0); Monocytes # (auto) 0.4 10 ^3/uL (0-1.3); Monocytes % (auto) 7.5 % (0.0-12.0); Neutrophils # (auto) 4.1 10 ^3/uL (1.6-8.6); Neutrophils % (auto) 77.6 % (37.0-80.0); Nucleated Red Blood Cells % 0.2 %; Red Blood Cells 3.46 10^6/uL (4.0-5.20); Red Cell Distribution Width 19.9 % (11.8-14.3); White Blood Cell 5.3 10^3/uL (4.4-10.8)
[2021-12-06 05:56] LABS: Calcium 7.9 mg/dL (8.5-10.1); Magnesium 2.1 mg/dL (1.6-2.6)
[2021-12-06 06:00] LABS: BUN/Creatinine Ratio 30.7
[2021-12-06] MEDS: LEVOTHYROXINE SODIUM 100 MCG TAB PO SCH (06:05)
[2021-12-06] MEDS: LEVOTHYROXINE SODIUM 25 MCG TAB PO SCH (06:06)
[2021-12-06 09:00] VITALS: BP 93/38
[2021-12-06] MEDS: cefTRIAXone 1GM/50ML D5W 50 ML IV SCH (09:00)
[2021-12-06] MEDS: METOPROLOL TARTRATE 25 MG TAB PO SCH (09:36)
[2021-12-06] MEDS: DULoxetine HCL 30 MG CAP PO SCH (09:36)
[2021-12-06] MEDS: DOCUSATE SOD 100 MG CAP PO SCH ×2 (09:36→22:28)
[2021-12-06] MEDS: APIXABAN 5 MG TAB PO SCH ×2 (09:36→22:28)
[2021-12-06 13:00] VITALS: BP 130/61
[2021-12-06] MEDS ORDERED: LORazepam 0.5 MG TAB PO PRN (14:30)
[2021-12-06 17:37] VITALS: BP 112/55
[2021-12-06] MEDS: HYDROcodone-ACET 5/325MG TAB PO PRN (19:59)
[2021-12-06 22:00] VITALS: BP 115/66
[2021-12-07] MEDS: HYDROcodone-ACET 5/325MG TAB PO PRN (01:49)
[2021-12-07 05:00] VITALS: BP 111/59
[2021-12-07 06:38] LABS: Basophils # (auto) 0 10 ^3/uL (0-0.2); Basophils % (auto) 0.1 % (0.0-2.0); Eosinophils # (auto) 0 10 ^3/uL (0-0.8); Eosinophils % (auto) 0.1 % (0.0-7.0); Hematocrit 30.2 % (36.0-46.0); Lymphocytes # (auto) 0.5 10 ^3/uL (0.4-5.4); Lymphocytes % (auto) 9.6 % (10.0-50.0); Mean Corpuscular Hemoglobin 27.3 pg (28.0-32.0); Mean Corpuscular Hgb Conc. 33.2 g/dL (32.0-36.0); Mean Corpuscular Volume 82.2 fL (80.0-100.0); Monocytes # (auto) 0.4 10 ^3/uL (0-1.3); Monocytes % (auto) 6.9 % (0.0-12.0); Neutrophils # (auto) 4.3 10 ^3/uL (1.6-8.6); Neutrophils % (auto) 83.3 % (37.0-80.0); Nucleated Red Blood Cells % 0.1 %; Red Blood Cells 3.67 10^6/uL (4.0-5.20); White Blood Cell 5.2 10^3/uL (4.4-10.8)
[2021-12-07] MEDS: metroNIDAZOLE 500MG/100ML 100 ML IV SCH ×2 (06:44→13:31)
[2021-12-07] MEDS: LEVOTHYROXINE SODIUM 100 MCG TAB PO SCH (06:44)
[2021-12-07] MEDS: LEVOTHYROXINE SODIUM 25 MCG TAB PO SCH (06:44)
[2021-12-07 06:53] LABS: BUN/Creatinine Ratio 26.9; Calcium 7.5 mg/dL (8.5-10.1); Potassium 3.2 mmol/L (3.5-5.1)
[2021-12-07] MEDS: cefTRIAXone 1GM/50ML D5W 50 ML IV SCH (08:55)
[2021-12-07] MEDS ORDERED: POTASSIUM EFFERVESENT TAB 25 MEQ PO ONE (09:45)
[2021-12-07] MEDS: DULoxetine HCL 30 MG CAP PO SCH (09:57)
[2021-12-07] MEDS: DOCUSATE SOD 100 MG CAP PO SCH (09:57)
[2021-12-07] MEDS: APIXABAN 5 MG TAB PO SCH (09:58)
[2021-12-07] MEDS: SODIUM CHLORIDE 0.9% 1,000 ML IV SCH (09:59)
[2021-12-07] MEDS ORDERED: CHOLECALCIFEROL (VITD3) 2,000 UNIT CAP/TAB PO SCH (10:00)
[2021-12-07] MEDS ORDERED: LEVO150T10 PO (12:07)
[2021-12-07] MEDS ORDERED: LEVO500T31 PO (12:07)
[2021-12-07] MEDS ORDERED: DOCU-94 PO (12:07)
[2021-12-07] MEDS ORDERED: METR500T PO (12:07)
[2021-12-07] MEDS ORDERED: CHOL20007 PO (12:07)
[2021-12-07] MEDS ORDERED: ATOR10TA PO (12:09)
[2021-12-07 15:11] VITALS: BP 132/67
== END 2021-12-07 16:19 | disposition hospice, home (50) | DRG 312 ==
LOC: ER 14:49 → EDBD 14:49 → TELE 21:59 → TELE-WESTW 12-05 23:45
PROVIDERS: ADMIT Nurse Practitioner; ATTEND Internal Medicine
DX: R55 Syncope and collapse (principal); G93.41 Metabolic encephalopathy; K57.92 Diverticulitis of intestine, part unspecified, without perforation or abscess without bleeding; N39.0 Urinary tract infection, site not specified; I50.42 Chronic combined systolic (congestive) and diastolic (congestive) heart failure; I11.0 Hypertensive heart disease with heart failure; F03.90 Unspecified dementia, unspecified severity, without behavioral disturbance, psychotic disturbance, mood disturbance, and anxiety; Z20.822 Contact with and (suspected) exposure to COVID-19; E78.5 Hyperlipidemia, unspecified; I25.10 Atherosclerotic heart disease of native coronary artery without angina pectoris; E03.9 Hypothyroidism, unspecified; I48.0 Paroxysmal atrial fibrillation; K44.9 Diaphragmatic hernia without obstruction or gangrene; G62.9 Polyneuropathy, unspecified; E86.0 Dehydration; G89.4 Chronic pain syndrome; B96.20 Unspecified Escherichia coli [E. coli] as the cause of diseases classified elsewhere; E55.9 Vitamin D deficiency, unspecified; E87.6 Hypokalemia; J45.909 Unspecified asthma, uncomplicated; K59.09 Other constipation; M19.90 Unspecified osteoarthritis, unspecified site; Z51.5 Encounter for palliative care; Z79.899 Other long term (current) drug therapy; I25.2 Old myocardial infarction; Z80.0 Family history of malignant neoplasm of digestive organs; Z82.49 Family history of ischemic heart disease and other diseases of the circulatory system; Z95.5 Presence of coronary angioplasty implant and graft
CPT/HCPCS: 36415; 70450; 71045; 74176; 80048; 80053; 80061; 81001; 82306; 82962; 83036; 83605; 83735; 83880; 84436; 84443; 84481; 84484; 85025; 85610; 85730; 87086; 87088; 87186; 93005; 93306; 93886; 95819; 96365; 96366; 96368; 96372; 99291; G0378; J0696; J1956; J2405; J3490